=== PATIENT | male | born 1970 | race Caucasian/White ===

== ENCOUNTER 2019-08-12 08:43 | Emergency (ER) | payer MEDICAID, OTHER ==
[~2019-08-12] VITALS: Ht 188 cm; Wt 106.6 kg
--- NOTE | 2019-08-12 09:00 | NUR ---
UPPER ABDOMINAL PAIN W/ VOMITING X 2 DAYS. PATIENT A/OX4, BREATHING EVEN AND UNLABORED, NO SOB NOTED, KEPT COMFORTABLE, ATTACHED TO THE EQUITY ANALYST.
--- NOTE | 2019-08-12 09:20 | NUR ---
BUSINESS SYSTEMS ADMINISTRATOR AT BEDSIDE.
[2019-08-12] MEDS ORDERED: ONDANSETRON HCL/PF 4 MG/2 ML VIAL ONE (09:21)
[2019-08-12] MEDS ORDERED: KETOROLAC TROMETHAMINE INJ 30 MG/ML VIAL ONE (09:21)
[2019-08-12] MEDS ORDERED: PANTOPRAZOLE 40 MG VIAL ONE (09:21)
[2019-08-12] MEDS ORDERED: PANTOPRAZOLE 40 MG VIAL IV ONE (09:30)
[2019-08-12] MEDS ORDERED: ONDANSETRON HCL/PF 4 MG/2 ML VIAL IVP ONE (09:30)
[2019-08-12] MEDS ORDERED: KETOROLAC TROMETHAMINE INJ 30 MG/ML VIAL IV ONE (09:30)
[2019-08-12 09:32] LABS: BASOPHILS # (AUTO) 0.1 /CMM (0.0-0.2); BASOPHILS % (AUTO) 0.7 % (0.0-2.0); EOSINOPHILS % (AUTO) 1.6 % (0.0-6.0); HEMATOCRIT 47 % (39-51); HEMOGLOBIN 15.8 g/dL (13.5-17.5); LYMPHOCYTES # (AUTO) 1.5 /CMM (0.8-4.8); LYMPHOCYTES % (AUTO) 18.1 % (20.0-44.0); MEAN CORPUSCULAR HGB CONC 34 g/dl (31.0-36.0); MEAN CORPUSCULAR VOLUME 95 fL (80-96); MONOCYTES # (AUTO) 0.7 /CMM (0.1-1.30); NEUTROPHILS # (AUTO) 5.8 /CMM (1.8-8.9); NEUTROPHILS % (AUTO) 70.6 % (43.0-81.0); PLATELET COUNT (AUTO) 172 /CMM (150-450); RED BLOOD CELL COUNT(AUTO) 4.93 MIL/uL (4.5-6.0); WHITE BLOOD COUNT (AUTO) 8.2 K/uL (4.3-11.0)
[2019-08-12 09:42] LABS: CALCIUM, SERUM 9.4 mg/dL (8.5-10.1); CREATININE 0.8 mg/dL (0.6-1.3); POTASSIUM 3.8 mmol/L (3.5-5.1)
[2019-08-12 09:43] LABS: APPEARANCE,URINE Clear (CLEAR); BILIRUBIN,URINE MODERATE (NEGATIVE); BLOOD, URINE Negative Ery/uL (NEGATIVE); COLOR,URINE Yellow (YELLOW); KETONES,URINE 15 (NEGATIVE); LEUKOCYTE ESTERASE ,URINE Negative (NEGATIVE); NITRITE, URINE Negative (NEGATIVE); PH,URINE 8.5 (5.0-8.0); PROTEIN,URINE 100 mg/dl (NEGATIVE); UGLUCOSE 100 MG/DL mg/dL (NEGATIVE)
[2019-08-12 09:45] LABS: BACTERIA,URINE Rare /HPF (None Seen); SQUAMOUS EPITHELIAL CELL,UR Rare /HPF (None Seen); WBC,URINE 0-2 /HPF (0-3)
[2019-08-12 09:48] LABS: ALBUMIN 4.3 g/dL (3.4-5.0); BILIRUBIN,DIRECT 0.3 mg/dL (0.0-0.2); TOTAL PROTEIN, SERUM 7.5 g/dL (6.4-8.2)
[2019-08-12 09:53] LABS: CHOLESTEROL 175 mg/dL (<200); HDL CHOLESTEROL 85 mg/dL (40-60); LDL 69 mg/dL (0-99); TRIGLYCERIDES 111 mg/dL (30-150)
[2019-08-12] MEDS ORDERED: HYDROMORPHONE 1 MG/1 ML DISP.SYRIN ONE (10:23)
[2019-08-12] MEDS ORDERED: HYDROMORPHONE 1 MG/1 ML DISP.SYRIN IV ONE (10:30)
[2019-08-12 10:47] VITALS: BP 142/88
--- NOTE | 2019-08-12 10:47 | NUR ---
Patient ambulatory with a steady gait. Patient denies pain. IV removed. Catheter intact and site benign. Pressure and 4x4 applied to site. No bleeding noted.Patient discharged to home in stable condition. Written and verbal after care instructions given. Patient verbalizes understanding of instruction.
[2019-08-13] MEDS ORDERED: METF500T20 PO (07:51)
[2019-08-13] MEDS ORDERED: LISI10TA5 PO (07:51)
== END 2019-08-12 10:48 | disposition home or self-care (01) ==
LOC: ER 08:43
DX: K85.90 Acute pancreatitis without necrosis or infection, unspecified (principal); E11.9 Type 2 diabetes mellitus without complications; I10 Essential (primary) hypertension; E78.5 Hyperlipidemia, unspecified; E66.9 Obesity, unspecified; Z68.30 Body mass index [BMI] 30.0-30.9, adult; Z98.890 Other specified postprocedural states; Z88.5 Allergy status to narcotic agent
CPT/HCPCS: 36415; 71045; 76705; 80048; 80061; 80076; 81001; 83690; 85025; 96374; 96375; 99285; C9113; J1170; J1885; J2405; 81000-TC

== ENCOUNTER 2019-08-12 19:30 | Inpatient (IN) | payer MEDICAID ==
[~2019-08-12] VITALS: Ht 188 cm; Wt 112.9 kg
[2019-08-12] MEDS ORDERED: IV NS 0.9% 1,000 ML BAG IV ONE (20:00)
[2019-08-12] MEDS ORDERED: ONDANSETRON HCL/PF 4 MG/2 ML VIAL ONE (20:22)
[2019-08-12 20:23] LABS: BASOPHILS # (AUTO) 0.1 /CMM (0.0-0.2); BASOPHILS % (AUTO) 0.5 % (0.0-2.0); EOSINOPHILS % (AUTO) 0.6 % (0.0-6.0); HEMATOCRIT 48 % (39-51); HEMOGLOBIN 16.6 g/dL (13.5-17.5); LYMPHOCYTES # (AUTO) 1.2 /CMM (0.8-4.8); MEAN CORPUSCULAR HGB CONC 34 g/dl (31.0-36.0); MEAN CORPUSCULAR VOLUME 95 fL (80-96); MONOCYTES # (AUTO) 0.8 /CMM (0.1-1.30); MONOCYTES % (AUTO) 7.4 % (2.0-12.0); NEUTROPHILS % (AUTO) 80.5 % (43.0-81.0); PLATELET COUNT (AUTO) 181 /CMM (150-450); WHITE BLOOD COUNT (AUTO) 11.2 K/uL (4.3-11.0)
[2019-08-12] MEDS ORDERED: HYDROMORPHONE 1 MG/1 ML DISP.SYRIN ONE ×2 (20:23→21:36)
[2019-08-12] MEDS ORDERED: ONDANSETRON HCL/PF - ER 4 MG/2 ML VIAL IV ONE (20:30)
[2019-08-12] MEDS ORDERED: HYDROMORPHONE INJ 0.5 MG/0.5 ML SYRINGE IV ONE ×2 (20:30→21:30)
[2019-08-12 20:31] LABS: CALCIUM, SERUM 9.1 mg/dL (8.5-10.1); CREATININE 0.9 mg/dL (0.6-1.3); POTASSIUM 3.6 mmol/L (3.5-5.1)
--- NOTE | 2019-08-12 20:31 | NUR ---
BIBS WITH FAMILY TO ER BED 1. AAOX4. NO RESP DISTRESS. TREMBLING. AMBULATORY. C/O R ABDOMINAL PAIN. PT WAS RECENTLY HERE THIS MORNING, GOT DX W/ PANCREATITIS AND DISCHARGED W/ SOMA FOR PAIN BUT INEFFECTIVE. PT IS HAVING SHARP R SIDED ABD PAIN 10/10 X 3 DAYS WORST TODAY. MD WAS AT BEDSIDE FOR EVAL. ORDERS RECEIVED,. NOTED AND CARRIED OUT. IV LINE OBTAINED ON THE R AC W/ 18G/ BLOOD DRAWN AND GIVEN TO SUPERVISOR DAIRY SANITATION AT BEDSIDE.
[2019-08-12 20:38] LABS: ALBUMIN 4.4 g/dL (3.4-5.0); BILIRUBIN,DIRECT 0.3 mg/dL (0.0-0.2); BILIRUBIN,TOTAL 1.1 mg/dL (0.2-1.0)
--- NOTE | 2019-08-12 21:59 | NUR ---
[facility] PAGED FOR PANEL
--- NOTE | 2019-08-12 22:21 | NUR ---
CALLED FOR MS BED
--- NOTE | 2019-08-12 22:57 | NUR ---
REPORT GIVEN TO SVETLANA QUINTANILLA FOR YOSHI
[2019-08-12] MEDS ORDERED: DEXTROSE 50%-WATER 50 ML DISP.SYRIN IV PRN (23:00)
[2019-08-12] MEDS ORDERED: hydrALAZINE HCL IV 20 MG VIAL IV PRN (23:00)
[2019-08-12] MEDS ORDERED: ONDANSETRON HCL/PF 4 MG/2 ML VIAL IVP PRN (23:00)
[2019-08-12] MEDS ORDERED: HYDROMORPHONE INJ 2 MG/ML DISP.SYRIN IV PRN (23:00)
--- NOTE | 2019-08-12 23:10 | NUR ---
MS RN NOTE PT ARRIVED FROM ER VIA GURNEY ACCOMPANIED BY ER STAFF. PT IN STABLE CONDITION A/O X4, STEADY GAIT TO BED. NO SIGNS OF SOB OR DISTRESS, PAIN IS 10/10 (WILL AKIL DOMINGUEZ), NO N/V. IV IN L AC IN PLACE WITH IVF INFUSING. ALL CURRENT NEEDS ATTENDED TO. BED LOW, LOCKED, UPPER RAILS UP AND CALL LIGHT WITHIN REACH. WILL CONT. TO MONITOR. ALL BELONGINGS ACCOUNTED AND SIGNED FOR. NOTED WITH INTACT SKIN.
[2019-08-12] MEDS: IV D5/0.45 NACL 1,000 ML IV PRN (23:16)
[2019-08-12] MEDS: HYDROMORPHONE INJ 2 MG/ML DISP.SYRIN IV PRN (23:38)
--- NOTE | 2019-08-12 23:38 | NUR ---
MS RN NOTE BELL WITH NEW ORDER FOR DILAUDED 1 MG IV ONE TIME. GIVEN TO PT. FOR PAIN 04/09. PT MADE AWARE THAT THIS IS A ONE TIME DOSE, VERBALIZES UNDERSTANDING. WILL CONT. TO MONITOR.
--- NOTE | 2019-08-13 05:21 | NUR ---
MS RN NOTE NOTIFIED BELL OF PT CURRENT PAIN. NEW ORDER FOR ONE TIME DOSE DILAUDID 1 MG IV. WILL ADMIN. STANDING ORDER OF DILAUDID 2MG Q4H IV FREQUENCY CHANGED TO Q3H. NEW ORDER CARRIED OUT.
[2019-08-13] MEDS ORDERED: HYDROMORPHONE 1 MG/1 ML DISP.SYRIN IV ONE (05:30)
[2019-08-13] MEDS: IV D5/0.45 NACL 1,000 ML IV PRN ×2 (05:42→16:39)
[2019-08-13] MEDS: INSULIN REGULAR, HUMAN 100 UNIT/ML 3 ML VIAL SQ PRN ×4 (05:56→22:08)
[2019-08-13 06:25] LABS: BASOPHILS % (AUTO) 0.1 % (0.0-2.0); EOSINOPHILS % (AUTO) 0.1 % (0.0-6.0); HEMATOCRIT 47 % (39-51); HEMOGLOBIN 16.2 g/dL (13.5-17.5); LYMPHOCYTES % (AUTO) 8.5 % (20.0-44.0); MEAN CORPUSCULAR HGB CONC 34 g/dl (31.0-36.0); MEAN CORPUSCULAR VOLUME 94 fL (80-96); MONOCYTES # (AUTO) 0.9 /CMM (0.1-1.30); MONOCYTES % (AUTO) 7.9 % (2.0-12.0); NEUTROPHILS # (AUTO) 9.7 /CMM (1.8-8.9); NEUTROPHILS % (AUTO) 83.4 % (43.0-81.0); PLATELET COUNT (AUTO) 159 /CMM (150-450); WHITE BLOOD COUNT (AUTO) 11.6 K/uL (4.3-11.0)
--- NOTE | 2019-08-13 06:29 | NUR ---
MS RN NOTE PT REMAINS IN STABLE CONDITION A/O X4. NO SIGNS OF SOB OR DISTRESS, PT STATES PAIN IS TOLERABLE, NO N/V. IV IN L AC IN PLACE WITH IVF INFUSING. ALL CURRENT NEEDS ATTENDED TO. BED LOW, LOCKED, UPPER RAILS UP AND CALL LIGHT WITHIN REACH. WILL CONT. TO MONITOR AND ENDORSE TO NEXT SHIFT FOR YOSHI.
[2019-08-13 06:49] LABS: THYROID STIMULATING HORMONE 2.328 uIU/mL (0.358-3.74)
[2019-08-13] MEDS: BLOOD SUGAR DIAGNOSTIC 1 EACH STRIP IN SCH ×4 (06:51→22:00)
[2019-08-13 06:55] LABS: ALBUMIN 3.8 g/dL (3.4-5.0); BILIRUBIN,TOTAL 0.9 mg/dL (0.2-1.0); CALCIUM, SERUM 8.5 mg/dL (8.5-10.1); CREATININE 0.8 mg/dL (0.6-1.3); MAGNESIUM 1.5 mg/dL (1.8-2.4); PHOSPHORUS 3.4 mg/dL (2.5-4.9); POTASSIUM 3.5 mmol/L (3.5-5.1); TOTAL PROTEIN, SERUM 7.1 g/dL (6.4-8.2)
--- NOTE | 2019-08-13 07:50 | NUR ---
MS RN OPENING NOTE PATIENT IN BED RESTING COMFORTABLY. PATIENT IN NO ACUTE DISTRESS. NO SOB NOTED. PATIENT BREATHING IS EVEN AND UNLABORED.PATIENT WITH ABDOMINAL PAIN 5/10 AND STATES IS TOLERABLE. PATIENT SAFETY PRECAUTIONS IN PLACE. PATIENT BED IS LOCKED AND IN LOWEST POSITION. CALL LIGHT WITHIN REACH. WILL CONTINUE TO MONITOR.
[2019-08-13] MEDS ORDERED: METF500T20 PO (07:51)
[2019-08-13] MEDS ORDERED: LISI10TA5 PO (07:51)
[2019-08-13 08:00] VITALS: BP 148/95
[2019-08-13] MEDS: PANTOPRAZOLE 40 MG VIAL IV SCH (09:04)
[2019-08-13] MEDS: HYDROMORPHONE INJ 2 MG/ML DISP.SYRIN IV PRN ×4 (09:04→23:29)
[2019-08-13] MEDS: Magnesium 1GM/D5W 100ML PREMIX 100 ML IV SCH ×2 (10:07→11:19)
--- NOTE | 2019-08-13 12:44 | NUR ---
MS RN NOTE PATIENT EVALUATED BY DR. RAMIREZ. ORDERS TO INCREASE IV FLUIDS RATE TO 150ML/HR. NO OTHER ORDERS AT THIS TIME. WILL CONTINUE TO MONITOR.
--- NOTE | 2019-08-13 13:32 | NUR ---
MS RN NOTE DR. CEDEÑO SEEN AND EVALUATED PATIENT. PER DR. CEDEÑO TO START CLEAR LIQUID DIET. SPOKE WITH DR. RAMIREZ ABOUT DIET ORDER FROM DR. CEDEÑO. PER DR. RAMIREZ KEEP PATIENT NPO DUE TO ELEVATED LIPASE LEVELS. PER DR. RAMIREZ WILL INFORM DR. CEDEÑO.
--- NOTE | 2019-08-13 13:39 | NUR ---
MS RN NOTE PER DR. JAMES MORALES TO HAVE ICE CHIPS FOR PATIENT. Addendum: 08/13/19 at 1341 by JOHNATHON CORCORAN RN RN NOTE PER DR. JAMES MORALES TO HAVE ICE CHIPS FOR PATIENT. AND MAINTAIN DIET STATUS NPO.
--- NOTE | 2019-08-13 15:10 | NUR ---
MS RN NOTE PATIENT STATED HE HAD SLIGHTLY BLOOD TINGED SALIVA WHEN COUGHING AND SPITING OUT THE SALIVA. NOTIFIED DR. RAMIREZ. PER MD JUST CONTINUE TO MONITOR AT THIS TIME.
[2019-08-13 16:00] VITALS: BP 150/96
--- NOTE | 2019-08-13 19:50 | NUR ---
MS RN CLOSING NOTE PATIENT IN BED RESTING COMFORTABLY. PATIENT IN NO ACUTE DISTRESS. NO SOB NOTED. PATIENT BREATHING IS EVEN AND UNLABORED. PATIENT STATES ABDOMINAL PAIN IS 5/10 AND IS TOLERABLE. SAFETY PRECAUTIONS IN PLACE. PATIENT BED IS LOCKED AND IN LOWEST POSITION. CALL LIGHT WITHIN REACH. WILL ENDORSE CARE TO PM SHIFT FOR YOSHI.
--- NOTE | 2019-08-13 19:50 | NUR ---
MS RN NOTES PATIENT RESTING IN BED COMFORTABLY; AWAKE, A/O X4; NO SOB; NO S/S OF ACUTE RESPIRATORY DISTRESS NOTED; PATIENT TOLERATING ROOM AIR WELL; NPO STATUS MAINTAINED; R AC #18 INTACT AND PATENT; FLUSHING WELL; NO S/S OF REDNESS OR INFILTRATION; RUNNING D5 1/2 NS @ 150ML/HR; SAFETY PRECAUTIONS IN PLACE; BED LOCKED IN LOW POSITION; SIDE RAILS X2; CALL LIGHT WITHIN EASY REACH; WILL CONTINUE TO MONITOR
[2019-08-13 20:00] VITALS: BP 123/87
[2019-08-13 20:47] VITALS: BP 123/87
--- NOTE | 2019-08-13 23:30 | NUR ---
MS RN NOTES PATIENT REQUESTING PAIN MEDICATION FOR 9/10 ABDOMINAL PAIN; DILAUDID 1ML IV ADMINISTERED; WILL CONTINUE TO MONITOR
[2019-08-14] MEDS: IV D5/0.45 NACL 1,000 ML IV PRN ×2 (05:38→14:53)
[2019-08-14] MEDS: BLOOD SUGAR DIAGNOSTIC 1 EACH STRIP IN SCH ×4 (06:18→22:09)
[2019-08-14] MEDS: HYDROMORPHONE INJ 2 MG/ML DISP.SYRIN IV PRN ×5 (06:22→23:25)
[2019-08-14] MEDS: INSULIN REGULAR, HUMAN 100 UNIT/ML 3 ML VIAL SQ PRN ×4 (06:23→22:12)
--- NOTE | 2019-08-14 06:30 | NUR ---
MS RN NOTES PATIENT REQUESTING PAIN MEDICATION FOR 9/10 ABDOMINAL PAIN; 1ML DILAUDID IV ADMINISTERED; WILL CONTINUE TO MONITOR
[2019-08-14 06:49] LABS: CALCIUM, SERUM 8.8 mg/dL (8.5-10.1); CREATININE 0.8 mg/dL (0.6-1.3); POTASSIUM 4.1 mmol/L (3.5-5.1)
--- NOTE | 2019-08-14 06:50 | NUR ---
MS RN CLOSING NOTES PATIENT AWAKE, A/OX4; RESTING COMFORTABLY IN BED; NO SOB; NO S/S OF RESPIRATORY DISTRESS NOTED; PATIENT TOLERATING ROOM AIR WELL; R AC #18 INTACT AND PATENT; FLUSHING WELL; NO S/S OF REDNESS OR INFILTRATION; RUNNING D51/2 NS @ 150ML/HR; PATIENT TOLERATING INFUSION WELL; ALL NEEDS RENDERED; SAFETY PRECAUTIONS IN PLACE; BED LOCKED IN LOW POSITION; SIDE RAILS X2; CALL LIGHT WITHIN EASY REACH; WILL ENDORSE CONTINUITY OF CARE TO ONCOMING SHIFT
--- NOTE | 2019-08-14 07:28 | NUR ---
MS RN OPENING NOTES RECEIVED PATIENT AWAKE IN BED IN NO ACUTE SIGNS OF DISTRESS. A/O X4. ABLE TO VERBALIZED NEEDS, DENIES PAIN OR ANY DISCOMFORTS AT THIS TIME. NPO STATUS MAINTAINED. ON ROOM AIR, BREATHING EVEN AND UNLABORED. IV ACCESS ON RAC G#18 INTACT AND PATENT, IVF OF D5 1/2 NS @ 150ML/HR INFUSING WELL, NO S/S OF INFILTRATION AT SITE NOTED. SAFETY PRECAUTIONS IN PLACE: BED LOCKED AND IN LOW POSITION WITH SIDE RAILS UPX2. CALL LIGHT WITHIN EASY REACH OF PT. WILL CONTINUE TO MONITOR
[2019-08-14 08:00] VITALS: BP 98/66
[2019-08-14] MEDS: PANTOPRAZOLE 40 MG VIAL IV SCH (08:25)
--- NOTE | 2019-08-14 09:15 | NUR ---
RN NOTES MD ORDERED STAT LIPASE. CALLED LAB AND TECH SAID THAT SOMEBODY WILL COME TO TAKE BLOOD.
--- NOTE | 2019-08-14 10:48 | NUR ---
RN NOTES/PAIN MANAGEMENT PT COMPLAINED OF SHARP ACHING MID LOWER ABDOMINAL PAIN WITH SCALE OF 8/10, PRN DILAUDID 2MG/ML ADMINISTERED AT 1045. WILL CONTINUE TO MONITOR AND REASSESS PT.
--- NOTE | 2019-08-14 10:55 | NUR ---
RN NOTES PT SEEN BY DR AUSTIN WITH ORDER TO START PT ON CLEAR LIQUIDS DIET.
[2019-08-14 15:22] LABS: APPEARANCE,URINE CLEAR (CLEAR); BILIRUBIN,URINE MODERATE (NEGATIVE); BLOOD, URINE NEGATIVE Ery/uL (NEGATIVE); COLOR,URINE AMBER (YELLOW); KETONES,URINE TRACE (NEGATIVE); LEUKOCYTE ESTERASE ,URINE NEGATIVE (NEGATIVE); NITRITE, URINE POSITIVE (NEGATIVE); PH,URINE 6.5 (5.0-8.0); PROTEIN,URINE 30 mg/dl (NEGATIVE); UGLUCOSE NEGATIVE (NEGATIVE)
[2019-08-14 15:39] LABS: BACTERIA,URINE 1+ /HPF (None Seen); MUCUS,URINE Many /LPF (None Seen); RBC,URINE NONE SEEN /HPF (0-2); WBC,URINE NONE SEEN /HPF (0-3)
[2019-08-14 16:00] VITALS: BP 122/83
--- NOTE | 2019-08-14 16:43 | NUR ---
RN NOTES IV ACCESS ON RAC DISLODGED WITH NO BLEEDING NOTED. NEW IV ACCESS INSERTED TO RFA G#22 AND IVF OF D5 1/2 NS AT 150ML/HR CONTINUED. WILL CONTINUE TO MONITOR.
--- NOTE | 2019-08-14 19:05 | NUR ---
MS RN CLOSING NOTES PATIENT IN BED WATCHING TV AT THIS TIME. A/O X4. ABLE TO VERBALIZED NEEDS. ON ROOM AIR, TOLERATING WELL WITH NO SOB NOTED DURING THE DAY. IV ACCESS ON LFA G#22 INTACT AND PATENT, IVF OF D5 1/2 NS @ 150ML/HR INFUSING WELL, NO S/S OF INFILTRATION AT SITE NOTED. SAFETY PRECAUTIONS IN PLACE: BED LOCKED AND IN LOW POSITION WITH SIDE RAILS UPX2. CALL LIGHT WITHIN EASY REACH OF PT. ALL NEEDS AND CARE ATTENDED WELL. WILL ENDORSE TO SWITCHBOARD OPERATOR SUPERVISOR NURSE FOR YOSHI
--- NOTE | 2019-08-14 19:30 | NUR ---
MS RN OPENING NOTES PATIENT AWAKE AND RESTING IN BED. A/O X4. ABLE TO VERBALIZE NEEDS. NO S/S OF SOB AND NO COMPLAINTS OF PAIN AT THIS TIME. IV PRESENT ON LEFT FA, SIZE 22, INTACT & PATENT. BED LOCKED, SIDE RAILS X2, CALL LIGHT WITHIN REACH. WILL CONTINUE TO MONITOR.
[2019-08-14 20:00] VITALS: BP 137/75
[2019-08-15] MEDS: BLOOD SUGAR DIAGNOSTIC 1 EACH STRIP IN SCH ×2 (06:50→11:32)
[2019-08-15] MEDS: HYDROMORPHONE INJ 2 MG/ML DISP.SYRIN IV PRN ×3 (06:51→13:37)
--- NOTE | 2019-08-15 06:58 | NUR ---
MS RN CLOSING NOTES PATIENT AWAKE IN BED. A/OX4. REMAINED STABLE DURING SHIFT. NO S/S OF ACUTE RESPIRATORY DISTRESS. PATIENT C/O OF UPPER ABDOMINAL PAIN RATED 8/10. PRN DILAUDID 2MG GIVEN PER PATIENT'S REQUEST. IV ON LEFT FA, SIZE 22, INTACT & PATENT, HEP LOCKED. BED LOCKED, SIDE RAILS X2, CALL LIGHT WITHIN REACH. WILL ENDORSE TO DAY SHIFT NURSE TO FOLLOW PLAN OF CARE.
--- NOTE | 2019-08-15 07:14 | NUR ---
MS RN OPENING NOTES RECEIVED PATIENT IN BED WATCHING TV. A/O X4. ABLE TO MAKE NEEDS AND CONCERNS KNOWN, DENIES PAIN OR ANY DISCOMFORTS AT THIS TIME. ON ROOM AIR, BREATHING EVEN AND UNLABORED. IV ACCESS ON LFA G#22 INTACT AND PATENT, NO S/S OF INFILTRATION AT SITE NOTED. SAFETY PRECAUTIONS IN PLACE: BED LOCKED AND IN LOW POSITION WITH SIDE RAILS UPX2. CALL LIGHT WITHIN EASY REACH OF PT. WILL CONTINUE TO MONITOR
[2019-08-15 08:00] VITALS: BP 117/68
[2019-08-15] MEDS: PANTOPRAZOLE 40 MG VIAL IV SCH (08:22)
--- NOTE | 2019-08-15 13:42 | NUR ---
RN NOTES/PAIN MANAGEMENT PT COMPLAINED OF ACHING AND THROBBING LOWER ABDOMINAL PAIN WITH SCALE OF 8/10, PRN DILAUDID 2MG/ML ADMINISTERED AT 1337. WILL CONTINUE TO MONITOR AND REASSESS PT.
--- NOTE | 2019-08-15 14:49 | NUR ---
RN DISCHARGED NOTES PATIENT DISCHARGED HOME IN STABLE CONDITION. LIPASE LEVEL WENT DOWN TO 493 TODAY FROM 2269 YESTERDAY. PT IS A/O X4 AND ABLE TO MAKE NEEDS AND CONCERNS KNOWN. V/S TAKEN, STABLE AND RECORDED. NO SKIN ISSUES NOTED. ALL BELONGINGS ACCOUNTED FOR AND SIGNED FORM. IV ACCESS ON LFA G#22 REMOVED WITH NO BLEEDING NOTED, DRY DRESSING APPLIED. NAME ARMBAND REMOVED. HEALTH TEACHINGS GIVEN TO PT AND VERBALIZED UNDERSTANDING. PT LEFT UNIT AMBULATORY 1435 ACCOMPANIED BY DAUGHTER AND THEY WILL TAKE UBER TO GO HOME. MD AWARE OF DISCHARGE
== END 2019-08-15 15:07 | disposition home or self-care (01) | DRG 282 ==
LOC: ER 19:33 → MEDSG2 22:43
PROVIDERS: ADMIT Nurse Practitioner Acute Care; ATTEND Internal Medicine
DX: K85.90 Acute pancreatitis without necrosis or infection, unspecified (principal); K76.0 Fatty (change of) liver, not elsewhere classified; E11.65 Type 2 diabetes mellitus with hyperglycemia; D72.829 Elevated white blood cell count, unspecified; I10 Essential (primary) hypertension; K86.1 Other chronic pancreatitis
CPT/HCPCS: 36415; 80048-TC; 80053-TC; 80061-TC; 80076-TC; 81000-TC; 82962-TC; 83690-TC; 83735-TC; 84100-TC; 84443-TC; 85025-TC; 87081-TC; 87086-TC; C9113; G0378; G0480; J1170; J1815; J2405; J3475; J3490